=== PATIENT | male | born 1960 | race Caucasian/White ===

== ENCOUNTER 2024-04-26 08:02 | Outpatient (CLI) | payer BC, SELFPAY ==
--- NOTE | 2024-04-26 08:11 | CT_ITS ---
WS: [id number] CT CALCIUM SCORE REASON FOR VISIT: ABDOMINAL AORTIC ATHEROSCLEROSIS; Coronary artery disease risk assessment COMPARISON: None TECHNIQUE: Noncontrast coronary CT in combination with quantitative analysis performed on a separate workstation were used to determine CACS (Agatston score) TOTAL EXAM DOSE: 53.83 mGy.cm ECG GATING: Prospective SCAN RANGE: Pulmonary artery bifurcation to Inferior aspect of heart COMPLICATIONS: None FINDINGS: Technical Quality/Examination Quality: Good Limitaiton: None OVERALL SCORES Total calcium score: 30 Total volume score: 43 mm3 Percentile: 25th to 50th percentile % ARTERY SCORES Left main coronary artery: 2 Left anterior descending artery: 17 Left circumflex artery: 8 Right coronary artery: 0 PDA: 1 Other: 2 OTHER FINDINGS: Mediastinum: Normal. Thoracic aorta: Normal. Lungs: Well aerated Upper Abdomen: Normal. MINIMAL: 1-10 MILD: 11-100 MODERATE: 101-400 SEVERE:>400 CT/CT heart w calcium score 71994 IMPRESSION: 1. Total calcium score of 30 correlates with the 25th to the 50th percentile f or males between the ages of 60 and 64. 2. Total calcium score of 30 correlates with mild coronary artery disease GRADING OF CORONARY ARTERY DISEASE (BASED ON TOTAL CALCIUM SCORE) NO EVIDENCE OF CAD: 0 calcium score
== END 2024-04-26 08:03 | disposition home or self-care (01) ==
PROVIDERS: Visit Provider Family Medicine
DX: I70.0 Atherosclerosis of aorta (principal)
CPT/HCPCS: 75571